=== PATIENT | male | born 1980 | race Caucasian/White ===

== ENCOUNTER 2019-04-06 16:31 | Emergency (ER) | payer SELFPAY ==
[~2019-04-06] VITALS: Ht 172.7 cm; Wt 115.7 kg
[2019-04-06 16:44] VITALS: BP 153/64; Ht 172.7 cm; Wt 115.7 kg
== END 2019-04-06 18:55 | disposition home or self-care (01) ==
LOC: ED 16:31
DX: S61.210A Laceration without foreign body of right index finger without damage to nail, initial encounter (principal); X58.XXXA Exposure to other specified factors, initial encounter; Y93.89 Activity, other specified; Y92.89 Other specified places as the place of occurrence of the external cause; Y99.8 Other external cause status
CPT/HCPCS: 90715; A4570; J2001; Q0162

== ENCOUNTER 2019-04-13 16:00 | Emergency (ER) | payer SELFPAY ==
[~2019-04-13] VITALS: Ht 172.7 cm; Wt 115.2 kg
[2019-04-13 16:11] VITALS: BP 130/77; Ht 172.7 cm; Wt 115.2 kg
== END 2019-04-13 21:01 | disposition left against medical advice (07) ==
LOC: ED 16:00
DX: S61.211A Laceration without foreign body of left index finger without damage to nail, initial encounter (principal); X58.XXXA Exposure to other specified factors, initial encounter; Y93.89 Activity, other specified; Y92.89 Other specified places as the place of occurrence of the external cause; Y99.8 Other external cause status

== ENCOUNTER 2019-04-15 07:14 | Emergency (ER) | payer MEDICAID ==
[~2019-04-15] VITALS: Ht 172.7 cm; Wt 115.7 kg
[2019-04-15 07:20] VITALS: BP 156/77; Ht 172.7 cm; Wt 115.7 kg
== END 2019-04-15 07:50 | disposition home or self-care (01) ==
LOC: ED 07:14
DX: S61.211D Laceration without foreign body of left index finger without damage to nail, subsequent encounter (principal); X58.XXXD Exposure to other specified factors, subsequent encounter; E66.9 Obesity, unspecified; Z68.38 Body mass index [BMI] 38.0-38.9, adult